=== PATIENT | female | born 1965 | race Caucasian/White ===

== ENCOUNTER 2020-12-16 21:01 | Emergency (ER) | payer SELFPAY ==
[~2020-12-16] VITALS: Ht 149.9 cm; Wt 69.9 kg
[2020-12-16] MEDS ORDERED: HYDROCODONE/APAP 10MG-325MG TAB PO ONE (21:45)
[2020-12-16] MEDS ORDERED: HYDROCODONE/APAP 10MG-325MG TAB ONE (22:03)
[2020-12-16] MEDS ORDERED: HYDROCODON-ACE1 EAC9 PO (22:28)
[2020-12-17] MEDS ORDERED: HYDROCODON-ACE1 EAC9 PO (10:44)
== END 2020-12-16 23:59 | disposition home or self-care (01) ==
LOC: ER 23:36
DX: S92.311A Displaced fracture of first metatarsal bone, right foot, initial encounter for closed fracture (principal); W20.8XXA Other cause of strike by thrown, projected or falling object, initial encounter; Y92.003 Bedroom of unspecified non-institutional (private) residence as the place of occurrence of the external cause